=== PATIENT | female | born 1985 | race Caucasian/White ===

== ENCOUNTER 2016-11-17 20:15 | Emergency (ER) | payer OTHER ==
[2016-11-17 20:23] VITALS: BP 124/71; PULSE 89; TEMP 97.8; BMI 29.5
--- NOTE | 2016-11-17 20:24 | PDOC ---
Rapid Medical Evaluation Chief Complaint: Vaginal Bleeding Time Seen by Provider: 11/17/16 20:18 Medical Evaluation: 11/17/16 20:19 I have performed a brief in-person evaluation of this patient. The patient presents with a chief complaint of: Vaginal bleeding. Pt is (1 spon AB), ~8-9 weeks by dates, no care as of yet, currently on abx for uti. Denies abd pain, flank pain, n/v/f/c Pertinent physical exam findings:Stable w/ benign abd and no CVAT I have ordered the following:beta/T&S/ua/US The patient will proceed to the ED for further evaluation.
[2016-11-17 20:57] LABS: URINE APPEARANCE CLEAR; URINE BILIRUBIN NEGATIVE (NEGATIVE); URINE BLOOD NEGATIVE (NEGATIVE); URINE COLOR LTYELLOW; URINE GLUCOSE (UA) NEGATIVE (NEGATIVE); URINE KETONE NEGATIVE (NEGATIVE); URINE NITRITE NEGATIVE (NEGATIVE); URINE PROTEIN NEGATIVE (NEGATIVE); URINE UROBILINOGEN NEGATIVE E.U./dl (0.2-1.0)
--- NOTE | 2016-11-17 21:25 | PDOC ---
History of Present Illness - History of Present Illness Initial Comments: 11/17/16 22:11 Patient is a 31 year old female (LNMP: 09/19/16) with significant medical hx of thyroid disease s/p partial thyroidectomy and gallstones who is presenting to the ED with light vaginal bleeding from today. The patient states that today she noticed scant blood on the toilet paper when she wiped. She states that her bleeding was very light and pink. Denies any abdominal pain, cramping, back pain, nausea, vomiting, diarrhea, fever, dysuria, urinary complaints, or vaginal discharge. Patient reports she hasn't started care as of yet. /M1 Allergies: acetaminophen <Waleska Bajwa - Last Filed: 11/17/16 23:45> <Cehla Rucker - Last Filed: 11/18/16 01:16> - General Chief Complaint: Vaginal Bleeding Stated Complaint: /BLEEDING Time Seen by Provider: 11/17/16 20:18 Past History <Waleska Bajwa - Last Filed: 11/17/16 23:45> - Past Medical History Thyroid Disease: Yes - Psycho/Social/Smoking Cessation Hx Suicidal Ideation: No Smoking History: Never smoked <Chela Rucker - Last Filed: 11/18/16 01:16> - Past Medical History Allergies/Adverse Reactions: Allergies Allergy/AdvReac Type Severity Reaction Status Date / Time acetaminophen [From Tylenol] AdvReac Verified 11/17/16 20:23 Home Medications: Ambulatory Orders NK [No Known Home Medication] 11/17/16 Review of Systems - Review of Systems Comments:: 11/17/16 22:12 CONSTITUTIONAL: Absent: fever, chills, diaphoresis, generalized weakness, malaise, loss of appetite HEENT: Absent: rhinorrhea, nasal congestion, throat pain, throat swelling, difficulty swallowing, mouth swelling, ear pain, eye pain, visual changes CARDIOVASCULAR: Absent: chest pain, syncope, palpitations, irregular heart rate, lightheadedness , peripheral edema RESPIRATORY: Absent: cough, shortness of breath, dyspnea with exertion, orthopnea, wheezing, stridor, hemoptysis GASTROINTESTINAL: Absent: abdominal pain, abdominal distension, nausea, vomiting, diarrhea, constipation, melena, hematochezia GENITOURINARY: Present: vaginal bleeding Absent: dysuria, frequency, urgency, hesitancy, hematuria, flank pain, genital pain MUSCULOSKELETAL: Absent: myalgia, arthralgia, joint swelling SKIN: Absent: rash, itching, pallor HEMATOLOGIC/IMMUNOLOGIC: Absent: easy bleeding, easy bruising, lymphadenopathy, frequent infections ENDOCRINE: Absent: unexplained weight gain, unexplained weight loss, heat intolerance, cold intolerance NEUROLOGIC: Absent: headache, focal weakness or paresthesia, dizziness, unsteady gait, seizure, mental status changes, bladder or bowel incontinence. PSYCHIATRIC: Absent: anxiety, depression, suicidal or homicidal ideation, hallucinations <Waleska Bajwa - Last Filed: 11/17/16 23:45> *Physical Exam - Vital Signs Last Vital Signs Temp Pulse Resp BP Pulse Ox 97.8 F 89 18 124/71 99 11/17/16 20:19 11/17/16 20:19 11/17/16 20:19 11/17/16 20:19 11/17/16 20:19 - Physical Exam Comments: 11/17/16 22:13 GENERAL: Well developed, well nourished. Awake and alert. No acute distress. HEENT: Normocephalic, atraumatic. PERRLA, EOMI. No conjunctival pallor. Sclera are non- icteric. Moist mucous membranes. Oropharynx is clear. NECK: Supple. Full ROM. No JVD. Carotid pulses 2+ and symmetric, without bruits. No thyromegaly. No lymphadenopathy. CARDIOVASCULAR: Regular rate and rhythm. No murmurs, rubs, or gallops. Distal pulses are 2+ and symmetric. PULMONARY: No evidence of respiratory distress. Lungs clear to auscultation bilaterally. No wheezing, rales or rhonchi. ABDOMINAL: Soft. Non-tender. Non-distended. No rebound or guarding. No organomegaly. Normoactive bowel sounds. MUSCULOSKELETAL: Normal range of motion at all joints. No bony deformities or tenderness. No CVA tenderness. EXTREMITIES: No cyanosis. No clubbing. No edema. No calf tenderness. SKIN: Warm and dry. Normal capillary refill. No rashes. No jaundice. NEUROLOGICAL: Alert, awake, appropriate. Cranial nerves 2-12 intact. Normal speech. PSYCHIATRIC: Cooperative. Good eye contact. Appropriate mood and affect. <Waleska Bajwa - Last Filed: 11/17/16 23:45> - Vital Signs Last Vital Signs Temp Pulse Resp BP Pulse Ox 97.8 F 89 18 124/71 99 11/17/16 20:19 11/17/16 20:19 11/17/16 20:19 11/17/16 20:19 11/17/16 20:19 <Chela Rucker - Last Filed: 11/18/16 01:16> ED Treatment Course - ADDITIONAL ORDERS Additional order review: Laboratory Results 11/17/16 11/17/16 20:33 20:33 Beta HCG, Quant 70759.2 Urine Color Ltyellow Urine Appearance Clear Urine pH 8.0 Urine Protein Negative Urine Glucose (UA) Negative Urine Ketones Negative Urine Blood Negative Urine Nitrite Negative Urine Bilirubin Negative Urine Urobilinogen Negative Ur Leukocyte Esterase Trace H Urine RBC 13 Urine WBC 3 Ur Epithelial Cells Rare Hyaline Casts 1 Urine Mucus Rare - RADIOLOGY Radiograph Interpretation: 11/17/16 23:46 Transvaginal US Impression: Single intrauterine gestational sac with estimated gestational age of 6 weeks 4 days. No pole or yolk sac is identified. Correlation with serial quantitative serum beta hCG and follow-up ultrasound is recommended to rule out blighted ovum. Reported By: Yara David MD <Waleska Bajwa - Last Filed: 11/17/16 23:45> Medical Decision Making - Medical Decision Making 11/18/16 00:21 31-year-old female who is 3, para 2. Presents because of pelvic cramping and some light vaginal bleeding. She states that her last menstrual period was in August. Beta-hCG is 11,000. Transvaginal ultrasound shows an intrauterine uterine gestational sac of approximately 6 weeks. No pole and no yolk sac. Beta-hCGs will have to be repeated and there is concern for a blighted ovum. <Chela Rucker - Last Filed: 11/18/16 01:16> *DC/Admit/Observation/Transfer - Attestations Scribe Attestion: 11/17/16 22:13 Documentation prepared by Waleska Bajwa, acting as medical reception for Chela Rucker MD. <Waleska Bajwa - Last Filed: 11/17/16 23:45> <Chela Rucker - Last Filed: 11/18/16 01:16> Diagnosis at time of Disposition: Threatened - Discharge Dispostion Disposition: HOME Condition at time of disposition: Stable - Patient Instructions Printed Discharge Instructions: DI for Threatened Additional Instructions: please call your cake inspector and ask to have repeat bhcg and pelvix ultrasound one week
[2016-11-17 21:27] LABS: URINE LEUK ESTERASE TRACE (NEGATIVE)
[2016-11-17 21:39] LABS: URINE HYALINE CAST 1 /lpf; URINE MUCUS RARE; URINE RBC 13 /hpf (0-3); URINE WBC 3 /hpf (3-5)
== END 2016-11-18 01:22 | disposition home or self-care (01) ==
LOC: JER 20:15
DX: O26.891 Other specified pregnancy related conditions, first trimester (principal); Z3A.01 Less than 8 weeks gestation of pregnancy; O20.0 Threatened abortion; E07.9 Disorder of thyroid, unspecified
CPT/HCPCS: 36415; 76817-TC; 81003; 81015; 84702; 86850; 86900; 86901; 87086; 99282-25

== ENCOUNTER 2016-11-21 16:20 | Emergency (ER) | payer OTHER ==
[2016-11-21 16:29] VITALS: BP 115/66; PULSE 98; TEMP 98; BMI 29.7
--- NOTE | 2016-11-21 16:57 | PDOC ---
History of Present Illness - History of Present Illness Initial Comments: 11/21/16 17:31 Patient is a 31 year old female (LNMP: 09/19/16) with significant medical hx of thyroid disease who is presenting to the ED with one day of heavy vaginal bleeding. Patient reports she is passing clots and saturating through her pads into her clothing. The patient also endorses associated pelvic cramping. The patient was seen on 11/17 for light vaginal spotting and received a pelvic US. Her US demonstrated single intrauterine gestational sac with age of 6 weeks 4 days without any pole or yolk sac identifiable. Her beta hCG at that time was 11 thousand. She was discharged with instructions to follow up with sap bi architect and the patient failed to obtain follow up care. Denies any nausea , vomiting, abdominal pain, lightheadedness, fever, or chills. <Waleska Bajwa - Last Filed: 11/21/16 22:55> <Chey Landon - Last Filed: 11/22/16 00:17> - General Chief Complaint: Vaginal Bleeding Stated Complaint: VAGINAL BLEEDING, 6 WKS Time Seen by Provider: 11/21/16 16:57 Past History <Waleska Bajwa - Last Filed: 11/21/16 22:55> - Past Medical History Thyroid Disease: Yes - Reproductive History (#): 1 Para: 0 Therapeutic (s) & number: Yes Spontaneous : 0 - Psycho/Social/Smoking Cessation Hx Anxiety: No Suicidal Ideation: No Smoking History: Never smoked Have you smoked in the past 12 months: No Information on smoking cessation initiated: No Hx Alcohol Use: No Drug/Substance Use Hx: No Substance Use Type: None <Chey Landon - Last Filed: 11/22/16 00:17> - Past Medical History Allergies/Adverse Reactions: Allergies Allergy/AdvReac Type Severity Reaction Status Date / Time acetaminophen [From Tylenol] AdvReac Verified 11/21/16 16:26 Home Medications: Ambulatory Orders NK [No Known Home Medication] 11/17/16 Review of Systems - Review of Systems Comments:: 11/21/16 17:35 GENERAL/CONSTITUTIONAL: No fever or chills. No weakness. HEAD, EYES, EARS, NOSE AND THROAT: No change in vision. No ear pain or discharge. No sore throat. CARDIOVASCULAR: No chest pain or shortness of breath. RESPIRATORY: No cough, wheezing, or hemoptysis. GASTROINTESTINAL: Pelvic cramping. No nausea, vomiting, diarrhea or constipation. GENITOURINARY: Vaginal bleeding. No dysuria, frequency, or change in urination. MUSCULOSKELETAL: No joint or muscle swelling or pain. No neck or back pain. ENDOCRINE: No increased thirst. No abnormal weight change. SKIN: No rash NEUROLOGIC: No headache, vertigo, loss of consciousness, or change in strength/ sensation. <Waleska Bajwa - Last Filed: 11/21/16 22:55> *Physical Exam - Vital Signs Last Vital Signs Temp Pulse Resp BP Pulse Ox 98.0 F 98 H 18 115/66 100 11/21/16 16:26 11/21/16 16:26 11/21/16 16:26 11/21/16 16:26 11/21/16 16:26 - Physical Exam Comments: 11/21/16 17:35 GENERAL: Awake, alert, and fully oriented, in no acute distress HEAD: No signs of trauma EYES: PERRLA, EOMI, sclera anicteric, conjunctiva clear ENT: Auricles normal inspection, hearing grossly normal, nares patent, oropharynx clear without exudates. Moist mucosa NECK: Normal ROM, supple, no lymphadenopathy, JVD, or masses LUNGS: Breath sounds equal, clear to auscultation bilaterally. No wheezes, and no crackles HEART: Regular rate and rhythm, normal S1 and S2, no murmurs, rubs or gallops ABDOMEN: Soft, nontender, normoactive bowel sounds. No guarding, no rebound. No masses EXTREMITIES: Normal range of motion, no edema. No clubbing or cyanosis. No cords, erythema, or tenderness NEUROLOGICAL: Cranial nerves II through XII grossly intact. Normal speech, normal gait SKIN: Warm, Dry, normal turgor, no rashes or lesions noted. HEMATOLOGIC/LYMPHATIC: No anemia, easy bleeding, or history of blood clots. ALLERGIC/IMMUNOLOGIC: No hives or skin allergy. PELVIC: Moderate amount of blood in vaginal vault. Os closed. No CMT. No adnexal tenderness. <Waleska Bajwa - Last Filed: 11/21/16 22:55> - Vital Signs Last Vital Signs Temp Pulse Resp BP Pulse Ox 98.0 F 98 H 18 115/66 100 11/21/16 16:26 11/21/16 16:26 11/21/16 16:26 11/21/16 16:26 11/21/16 16:26 <Chey Landon - Last Filed: 11/22/16 00:17> ED Treatment Course - LABORATORY CBC & Chemistry Diagram: 11/21/16 17:34 11/21/16 18:30 - RADIOLOGY Radiograph Interpretation: 11/21/16 22:55 Transvaginal US Impression: Thickened and irregular endometrium with increased vascularity suggesting retained products of conception. Clinical correlation and follow-up recommended. Please see discussion. Reported By: Seun Cr MD <Waelska Bajwa - Last Filed: 11/21/16 22:55> - LABORATORY CBC & Chemistry Diagram: 11/21/16 17:34 11/21/16 18:30 <Chey Landon - Last Filed: 11/22/16 00:17> Medical Decision Making - Medical Decision Making 11/21/16 20:46 Pt presents to the ED complaining of a one day history of heavy vaginal bleeding. Recently seen in the ED for vaginal spotting--had BHCG of 11,000 and Us that showed only gestational sac. Patient now complains of heavy bleeding, passing clots. On my exam, os is closed with moderate bleeding in the vaginal vault. Differential includes completed AB, missed AB, also ectopic remains on the differential. Will repeat BHCG, check US to again evaluate for ectopic. 11/22/16 00:13 US suspcious for retained products of conception, but os is closed and patient reports that bleeding is resolving. Patient will be discharged home with instructions to return immediately for worsening bleeding, fevers or severe abdominal pain. Has CAFETERIA COOK follow up on Thursday. <Chey Landon - Last Filed: 11/22/16 00:17> *DC/Admit/Observation/Transfer - Attestations Scribe Attestion: 11/21/16 17:36 Documentation prepared by Waleska Bajwa, acting as medical claims assistant for Chey Landon MD. <Waleska Bajwa - Last Filed: 11/21/16 22:55> - Discharge Dispostion Admit: No <BarbiChey reyes - Last Filed: 11/22/16 00:17> Diagnosis at time of Disposition: Threatened - Discharge Dispostion Disposition: HOME Condition at time of disposition: Good - Patient Instructions Printed Discharge Instructions: DI for Vaginal Bleeding Additional Instructions: Return to the ED for heavy vaginal bleeding, severe pain, fever, nausea and vomiting.
[2016-11-21 17:45] LABS: BASOPHIL 0.4 % (0-2.0); EOSINOPHIL 5.1 % (0-4.5); MCH 29.6 pg (25.7-33.7); MCHC 33.3 g/dl (32.0-36.0); MEAN CELL VOLUME 88.7 fl (80-96); PLATELET COUNT 290 K/MM3 (134-434); RDW 12.9 % (11.6-15.6); WHITE BLOOD COUNT 9.8 K/mm3 (4.0-10.0)
[2016-11-21 17:51] LABS: URINE APPEARANCE SLCLOUDY; URINE BILIRUBIN NEGATIVE (NEGATIVE); URINE COLOR YELLOW; URINE GLUCOSE (UA) NEGATIVE (NEGATIVE); URINE KETONE NEGATIVE (NEGATIVE); URINE LEUK ESTERASE NEGATIVE (NEGATIVE); URINE NITRITE NEGATIVE (NEGATIVE); URINE UROBILINOGEN NEGATIVE E.U./dl (0.2-1.0)
[2016-11-21 17:55] LABS: URINE BLOOD 3+ (NEGATIVE); URINE PROTEIN 1+ (NEGATIVE)
[2016-11-21 17:59] LABS: URINE MUCUS RARE; URINE RBC 2456 /hpf (0-3)
[2016-11-21 18:44] LABS: INR 1.09 (0.82-1.09)
[2016-11-21 20:02] LABS: ALBUMIN 3.7 g/dl (3.4-5.0); ALK PHOS 109 U/L (45-117); ANION GAP 7 (8-16); BILIRUBIN,TOTAL 0.3 mg/dL (0.2-1.0); CALCIUM 8.6 mg/dL (8.5-10.1); CO2 27 mmol/L (21-32); CREATININE 0.6 mg/dL (0.55-1.02); GLUCOSE,RANDOM 74 mg/dL (74-106); SGOT/AST 17 U/L (15-37); SGPT/ALT 28 U/L (12-78); TOT PROT 7.4 g/dl (6.4-8.2)
== END 2016-11-22 00:23 | disposition home or self-care (01) ==
LOC: JER 16:20
DX: O20.0 Threatened abortion (principal); Z3A.01 Less than 8 weeks gestation of pregnancy
CPT/HCPCS: 36415; 76817-TC; 80053; 81003; 81015; 84702; 84703; 85025; 85610; 86850; 86900; 86901; 99281-25

== ENCOUNTER 2018-04-12 01:50 | Inpatient (IN) | payer OTHER ==
[2018-04-12 02:41] VITALS: BMI 29.8
[2018-04-12] MEDS ORDERED: DEXTROSE 5%-WATER - 1,000 ML IV ONE ×2 (02:43→02:49)
[2018-04-12] MEDS ORDERED: AMPICILLIN - 2 GM in SODIUM CHLORIDE 100 ML IVPB ONE (02:45)
[2018-04-12] MEDS ORDERED: OXYTOCIN 20 UNITS in 0.9% NS 20 UNIT/1,000 ML INFUS.BAG IV ONE (02:58)
[2018-04-12 02:59] LABS: BASO % 0.6 % (0-2.0); EOS % 3.7 % (0-4.5); HEMATOCRIT 39.1 % (32.4-45.2); HEMOGLOBIN 13.5 GM/dL (10.7-15.3); LYMPH % 16.2 % (8-40); MCH 30.1 pg (25.7-33.7); MCHC 34.6 g/dl (32.0-36.0); MEAN CELL VOLUME 87.1 fl (80-96); MEAN PLT VOLUME 8.4 fl (7.5-11.1); MONO % 6.5 % (3.8-10.2); PLATELET COUNT 275 K/MM3 (134-434); RBC 4.48 M/mm3 (3.60-5.2); RDW 13.6 % (11.6-15.6); WHITE BLOOD COUNT 10.4 K/mm3 (4.0-10.0)
--- NOTE | 2018-04-12 03:10 | PN ---
Progress Note (short form) - Note Progress Note: cx 6 cm, 80 vx -2, mi, arom , mec stained AF , fhr cat 1, scalp electrode applied
[2018-04-12] MEDS ORDERED: NALOXONE HCL 0.4 MG/ML VIAL IVPUSH PRN (03:19)
[2018-04-12] MEDS ORDERED: ELECTROLYTE-148 SOLN 500 ML IV ONE ×3 (03:20→04:22)
[2018-04-12] MEDS ORDERED: FENTANYL/BUPIVACAINE/NS/PF - PCEA - 50 ML DISP.SYRIN EP ONE (03:20)
[2018-04-12 03:24] LABS: INR 0.92 (0.83-1.09); PROTHROMBIN TIME (PATIENT) 10.9 SEC (9.7-13.0)
[2018-04-12] MEDS ORDERED: LIDO 2%/EPI 1:200000 PRESRVFRE (20 ML SDVIAL) ONE (03:24)
[2018-04-12 03:25] LABS: ANION GAP 11 MMOL/L (8-16); BLOOD UREA NITROGEN 9 mg/dL (7-18); CALCIUM 8.3 mg/dL (8.5-10.1); CHLORIDE 106 mmol/L (98-107); CO2 20 mmol/L (21-32); CREATININE 0.5 mg/dL (0.55-1.3); GLUCOSE,RANDOM 86 mg/dL (74-106); POTASSIUM 3.9 mmol/L (3.5-5.1); SODIUM 136 mmol/L (136-145)
--- NOTE | 2018-04-12 03:39 | HP ---
Past Medical History - Primary Care Physician PCP:: Cayden Mckenna - Admission Chief Complaint: 40 weeks, labor History of Present Illness: 33 yo f ,edc 04/06/18 in labor, cx 6 cm, 80 vx -2, mi, fhr cat 1, regular contraction q 1 min History Source: Patient Limitations to Obtaining History: No Limitations - Past Medical History ...: 2 ...Para: 1 ...Term: 1 ...: 0 ...Spon : 0 ...Induced : 0 ...Multiple Gestation: 0 ...LMP: 06/18/17 ... Weeks Gestation by Dates: 42.3 ...EDC by Dates: 03/25/18 ...EDC by Sono: 04/06/18 - Past Surgical History Hx Myomectomy: No Hx Transabdominal Cerclage: No Additional Surgical History: partial thyroidectomy - Smoking History Smoking history: Never smoked Have you smoked in the past 12 months: No - Alcohol/Substance Use Hx Alcohol Use: No - Social History History of Recent Travel: Yes (traveled to [facility] 07/2017) Home Medications - Allergies Allergies/Adverse Reactions: Allergies Allergy/AdvReac Type Severity Reaction Status Date / Time apple Allergy Verified 04/12/18 02:23 acetaminophen [From Tylenol] AdvReac Verified 04/12/18 02:23 - Home Medications Home Medications: Ambulatory Orders Pnv No.95/Ferrous Fum/Folic AC [ Vitamin Tablet] 1 tab PO DAILY Review of Systems - Review of Systems Constitutional: reports: No Symptoms Eyes: reports: No Symptoms HENT: reports: No Symptoms Neck: reports: No Symptoms Respiratory: reports: No Symptoms Gastrointestinal: reports: No Symptoms Genitourinary: reports: No Symptoms Breasts: reports: No Symptoms Reported Musculoskeletal: reports: No Symptoms Integumentary: reports: No Symptoms Neurological: reports: No Symptoms Endocrine: reports: No Symptoms Hematology/Lymphatic: reports: No Symptoms Psychiatric: reports: No Symptoms Physical Exam - Maternity Vital Signs: Vital Signs Temperature 98.0 F 04/12/18 02:00 Pulse Rate 97 H 04/12/18 02:00 Respiratory Rate 16 04/12/18 02:00 Blood Pressure 120/78 04/12/18 02:00 O2 Sat by Pulse Oximetry (%) Constitutional: Yes: Well Nourished, No Distress, Calm Eyes: Yes: WNL, Conjunctiva Clear, EOM Intact HENT: Yes: WNL, Atraumatic, Normocephalic Neck: Yes: WNL, Supple, Trachea Midline Cardiovascular: Yes: WNL, Regular Rate and Rhythm Breast(s): Yes: WNL - Abdominal Exam/OB Fundal Height: 40 Number of Fetuses: Single Presentation: Vertex Contractions: Yes Regularity: Regular Intensity: Mod/Strong Monitor Mode: External Heart Rate Location: [facility] Category: I Accelerations: Uniform Decelerations: None - Vaginal Exam/OB Vaginal Bleediing: No Speculum Exam: No Dilatation (cm): 6 cm Effacement (%): 80 Presentation: Vertex/Position Station: -2 - Physical Exam Extremities: Yes: WNL Edema: No Edema: LLE: Trace, RLE: Trace Deep Tendon Reflex Grade: Normal +2 Psychiatric: Yes: WNL - Labs Lab Results: CBC, BMP 04/12/18 02:40 04/12/18 02:40 Hemorrhage Risk Assessment - Risk Factors Medium Risk Factors: Yes: None High Risk Factors: Yes: None Risk Score: 1 Risk Level: Medium Risk Problem List - Problems (1) Postmaturity , 40-42 weeks gestation Code(s): O48.0 - POST-TERM (2) Labor established Code(s): EZY2444 - Assessment/Plan plan admit, fhm, pain management
[2018-04-12] MEDS: FENTANYL/BUPIVACAINE/NS/PF - PCEA - 50 ML DISP.SYRIN EP SCH (03:46)
[2018-04-12 06:28] LABS: ARTERIAL BLD GAS O2 SATURATION 68.1 % (90-98.9); ARTERIAL BLOOD GAS BASE EXCESS -4.1 meq/l (-2-2); ARTERIAL BLOOD GAS PCO2 41.1 mmHg (35-45); ARTERIAL BLOOD GAS pH 7.33 (7.35-7.45)
[2018-04-12 06:33] LABS: ARTERIAL BLOOD GAS PO2 36.6 mmHg (80-100)
[2018-04-12 06:34] LABS: VENOUS PC02 41.2 mmHg (38-52); VENOUS PH 7.33 (7.32-7.42)
[2018-04-12 06:35] LABS: VENOUS PO2 36.2 mmHg (28-48)
[2018-04-12] MEDS ORDERED: BISACODYL 10 MG SUPP.RECT RC PRN (06:49)
[2018-04-12] MEDS ORDERED: WITCH HAZEL 50% (TUCKS) 40 PAD/JAR PAD TP PRN (06:49)
[2018-04-12] MEDS ORDERED: IBUPROFEN 600 MG TABLET (FP) PO PRN (06:49)
[2018-04-12] MEDS ORDERED: METHYLERGONOVINE MALEATE 0.2 MG/1 ML AMP IM PRN (06:49)
[2018-04-12] MEDS ORDERED: BENZOCAINE 20% 57 GM BOTTLE TP PRN (06:49)
[2018-04-12] MEDS ORDERED: BENZOCAINE 28 GM HEMORRHOIDAL OINTMENT TP PRN (06:49)
[2018-04-12] MEDS ORDERED: OXYTOCIN 20 UNITS in 0.9% NS 20 UNIT/1,000 ML INFUS.BAG IV SCH (07:00)
[2018-04-12] MEDS ORDERED: D5W-LR W/ 20 UNITS OXYTOCIN 1,000 ML IV SCH (07:00)
[2018-04-12] MEDS: FERROUS SO4 325 MG TABLET (FP) PO SCH ×2 (09:01→17:18)
[2018-04-12] MEDS: PRENATAL VITAMINS W/ FOLIC ACID TABLET (FP) PO SCH (09:01)
[2018-04-13 07:53] LABS: BASO % 0.4 % (0-2.0); EOS % 3.7 % (0-4.5); HEMATOCRIT 34.7 % (32.4-45.2); HEMOGLOBIN 11.7 GM/dL (10.7-15.3); LYMPH % 22.3 % (8-40); MCH 29.2 pg (25.7-33.7); MCHC 33.6 g/dl (32.0-36.0); MONO % 5.9 % (3.8-10.2); NEUT % 67.7 % (42.8-82.8); PLATELET COUNT 241 K/MM3 (134-434); RBC 3.99 M/mm3 (3.60-5.2); RDW 13.6 % (11.6-15.6); WHITE BLOOD COUNT 9.2 K/mm3 (4.0-10.0)
[2018-04-13] MEDS: FERROUS SO4 325 MG TABLET (FP) PO SCH ×2 (08:00→17:53)
--- NOTE | 2018-04-13 08:45 | PN ---
Post Progress Note - Subjective Subjective: 33 yo Para 2 status post vaginal delivery seen and evaluated. Doing well Post Day: 1 Type of Delivery: Vital Signs: Vital Signs Temperature 98.3 F 04/12/18 20:35 Pulse Rate 78 04/12/18 20:35 Respiratory Rate 18 04/12/18 20:35 Blood Pressure 113/60 04/12/18 20:35 O2 Sat by Pulse Oximetry (%) 100 04/12/18 07:15 Breast Exam: Yes: Soft Uterus: Yes: Fundus Firm Abdomen/GI: Yes: Abdomen soft, Tolerating PO Lochia: Yes: Rubra Lochia, amount: Moderate Extremities: Yes: Calves non-tender Activity: Ambulating - Labs Labs: CBC WBC 10.4 K/mm3 (4.0-10.0) H 04/12/18 02:40 RBC 4.48 M/mm3 (3.60-5.2) 04/12/18 02:40 Hgb 13.5 GM/dL (10.7-15.3) 04/12/18 02:40 Hct 39.1 % (32.4-45.2) 04/12/18 02:40 MCV 87.1 fl (80-96) 04/12/18 02:40 MCH 30.1 pg (25.7-33.7) 04/12/18 02:40 MCHC 34.6 g/dl (32.0-36.0) 04/12/18 02:40 RDW 13.6 % (11.6-15.6) 04/12/18 02:40 Plt Count 275 K/MM3 (134-434) 04/12/18 02:40 MPV 8.4 fl (7.5-11.1) 04/12/18 02:40 Absolute Neuts (auto) 7.6 K/mm3 (1.5-8.0) 04/12/18 02:40 Neutrophils % 73.0 % (42.8-82.8) 04/12/18 02:40 Lymphocytes % 16.2 % (8-40) 04/12/18 02:40 Monocytes % 6.5 % (3.8-10.2) 04/12/18 02:40 Eosinophils % 3.7 % (0-4.5) 04/12/18 02:40 Basophils % 0.6 % (0-2.0) 04/12/18 02:40 Nucleated RBC % 0 % (0-0) 04/12/18 02:40 Assessment/Plan Status post normal vaginal delivery Stable Continue routine care
[2018-04-13] MEDS: PRENATAL VITAMINS W/ FOLIC ACID TABLET (FP) PO SCH (10:00)
[2018-04-13] MEDS: FENTANYL/BUPIVACAINE/NS/PF - PCEA - 50 ML DISP.SYRIN EP SCH (13:11)
[2018-04-13] MEDS ORDERED: SENNOSIDES/DOCUSATE COMBO (SENNA PLUS) TABLET (UD) PO PRN (22:00)
[2018-04-14 07:33] VITALS: BP 124/79; PULSE 82; TEMP 98
[2018-04-14] MEDS: FERROUS SO4 325 MG TABLET (FP) PO SCH (08:17)
--- NOTE | 2018-04-14 08:34 | PN ---
Post Progress Note Post Day: 2 Type of Delivery: Vital Signs: Vital Signs Temperature 98 F 04/14/18 07:32 Pulse Rate 82 04/14/18 07:32 Respiratory Rate 20 04/14/18 07:32 Blood Pressure 124/79 04/14/18 07:32 O2 Sat by Pulse Oximetry (%) 100 04/13/18 09:00 Breast Exam: Yes: Soft, Other (BF.). No: Engorged Uterus: Yes: Fundus Firm, Fundus below umbilicus, Non-tender Lochia: Yes: Rubra Lochia, amount: Moderate Extremities: Yes: Calves non-tender Perineum: Yes: Laceration Activity: Ambulating - Labs Labs: CBC WBC 9.2 K/mm3 (4.0-10.0) 04/13/18 06:30 RBC 3.99 M/mm3 (3.60-5.2) 04/13/18 06:30 Hgb 11.7 GM/dL (10.7-15.3) 04/13/18 06:30 Hct 34.7 % (32.4-45.2) 04/13/18 06:30 MCV 87.0 fl (80-96) 04/13/18 06:30 MCH 29.2 pg (25.7-33.7) 04/13/18 06:30 MCHC 33.6 g/dl (32.0-36.0) 04/13/18 06:30 RDW 13.6 % (11.6-15.6) 04/13/18 06:30 Plt Count 241 K/MM3 (134-434) 04/13/18 06:30 MPV 8.0 fl (7.5-11.1) 04/13/18 06:30 Absolute Neuts (auto) 6.2 K/mm3 (1.5-8.0) 04/13/18 06:30 Neutrophils % 67.7 % (42.8-82.8) 04/13/18 06:30 Lymphocytes % 22.3 % (8-40) D 04/13/18 06:30 Monocytes % 5.9 % (3.8-10.2) 04/13/18 06:30 Eosinophils % 3.7 % (0-4.5) 04/13/18 06:30 Basophils % 0.4 % (0-2.0) 04/13/18 06:30 Nucleated RBC % 0 % (0-0) 04/13/18 06:30 Problem List - Problems (2) Encounter for visit Code(s): Z39.2 - ENCOUNTER FOR ROUTINE FOLLOW-UP Assessment/Plan stable. plan discharge today
[2018-04-14] MEDS: PRENATAL VITAMINS W/ FOLIC ACID TABLET (FP) PO SCH (10:05)
== END 2018-04-14 12:05 | disposition home or self-care (01) | DRG 560 ==
LOC: JLDR 01:50 → J3W 08:00
PROVIDERS: ADMIT Obstetrics & Gynecology; ATTEND Obstetrics & Gynecology
PROC: 10E0XZZ Delivery of Products of Conception, External Approach (ICD-10-PCS; principal; 2018-04-12)
PROC: 0KQM0ZZ Repair Perineum Muscle, Open Approach (ICD-10-PCS; 2018-04-12)
DX: O48.0 Post-term pregnancy (principal); Z3A.40 40 weeks gestation of pregnancy; Z37.0 Single live birth; O70.1 Second degree perineal laceration during delivery
CPT/HCPCS: 36415; 36600; 59409; 80048; 82803; 85025; 85610; 85730; 86593; 86850; 86900; 86901

== ENCOUNTER 2019-05-05 13:21 | Emergency (ER) | payer OTHER ==
[2019-05-05 13:33] VITALS: BMI 27.4
--- NOTE | 2019-05-05 15:31 | PDOC ---
History of Present Illness - General Chief Complaint: Vaginal Bleeding Stated Complaint: 7WKS/ BLEEDING Time Seen by Provider: 05/05/19 15:21 History Source: Patient Exam Limitations: No Limitations - History of Present Illness Travel History: No Initial Comments: 05/05/19 15:29 34-year-old female G5, approximately 7 weeks by dates presents with vaginal bleeding since today. Patient states she did have a little bit of spotting 2 days ago but then resolved. Patient denies any associated abdominal pain, nausea, vomiting, back pain. Patient states that the bleeding is very scant less than 1. She is concerned as she has had 2 miscarriages in the past. The patient denies any other symptoms including headache, dizziness, vision changes, chest pain, shortness of breath, back pain, dysuria, diarrhea. Patient has not had any care yet. OB: Dr Cabral ROS: Constitutional - no reported Fever, Chills, HEENT: no reported vision changes, sore throat Respiratory: no reported cough, sob, hemoptysis Cardiac: no reported chest pain, palpitations, light headedness, leg swelling Abd/GI: no reported abd pain, nausea, vomiting, blood per rectum, melena, diarrhea : +Vag bleeding no reported dysuria, frequency, discharge Musculskelatal - no reported back pain, joint swelling skin - no reported bruising, erythema, rash neurological: no reported headache, numbness, focal weakness, tingling, ataxia, hematologic: no reported easy bruising, easy bleeding GENERAL: The patient is awake, alert, and fully oriented, Nontoxic - in no acute distress. HEAD: Normocephalic, atraumatic. EYES: extraocular movements intact, sclera anicteric, conjunctiva clear. ENT: Normal voice, Moist mucous membranes. NECK: Normal range of motion, supple LUNGS: Breath sounds equal, clear to auscultation bilaterally. No wheezes, no rhonchi, no rales. HEART: Regular rate and rhythm, normal S1 and S2 without murmur, rub or gallop. ABDOMEN: Soft, nontender, No guarding, no rebound. No CVA tenderness Plaster Whittler: Cervical os closed, scant blood in vaginal vault. No adnexal tenderness EXTREMITIES: Normal range of motion, no edema. NEUROLOGICAL: No facial assymetry, Normal speech, PSYCH: Normal mood, normal affect. SKIN: Warm, Dry, normal turgor, Threatened miscarriage, will obtain blood work, TV ultrasound Past History - Past Medical History Allergies/Adverse Reactions: Allergies Allergy/AdvReac Type Severity Reaction Status Date / Time apple Allergy Verified 05/06/19 20:43 acetaminophen [From Tylenol] AdvReac Verified 05/06/19 20:43 Home Medications: Ambulatory Orders NK [No Known Home Medication] 05/07/19 Asthma: No Cancer: No Cardiac Disorders: No COPD: No Diabetes: No HTN: No Seizures: No Thyroid Disease: No - Reproductive History (#): 1 Para: 0 Therapeutic (s) & number: Yes Spontaneous : 0 - Psycho Social/Smoking Cessation Hx Smoking History: Never smoked Have you smoked in the past 12 months: No Hx Alcohol Use: No Drug/Substance Use Hx: No Substance Use Type: None Hx Substance Use Treatment: No *Physical Exam - Vital Signs Last Vital Signs Temp Pulse Resp BP Pulse Ox 98 F 87 16 110/73 100 05/05/19 13:29 05/05/19 13:29 05/05/19 13:29 05/05/19 13:29 05/05/19 13:29 ED Treatment Course - LABORATORY CBC & Chemistry Diagram: 05/05/19 15:07 - RADIOLOGY Radiology Studies Ordered: Category Date Time Status <14WKS US [US] Stat Ultrasound 05/05/19 15:21 Ordered Medical Decision Making - Medical Decision Making 05/05/19 16:48 pts beta at 6k US shows IUP wo cardiac activity pt feeling well curerntly will hve pt fu wih dr. marianna javed or return to ed for follow up retur npercautions were discussed Discharge - Discharge Information Problems reviewed: Yes Clinical Impression/Diagnosis: Vagina bleeding Condition: Good Disposition: HOME - Admission No - Follow up/Referral Referrals: Marianna Javed CNM [Certified Nurse Scientific Investigator] - - Patient Discharge Instructions Patient Printed Discharge Instructions: Medications and , Threatened Additional Instructions: you have a 6 week sized fetus on ultrasound but they are unable to detect heart activity. you will need close followup . this could be early vs. demise. you should follow up with your OB for a repeat ultrasound and hormone of as scheduled for thursday. return for any fever, dizziness or any concerns. be sure to drink plenty of fluids, - Post Discharge Activity
[2019-05-05 15:37] LABS: BASO % 0.5 % (0-2.0); HEMATOCRIT 40.3 % (32.4-45.2); HEMOGLOBIN 13.7 GM/dL (10.7-15.3); LYMPH % 18.7 % (8-40); MCH 30.5 pg (25.7-33.7); MEAN CELL VOLUME 89.9 fl (80-96); MEAN PLT VOLUME 7.9 fl (7.5-11.1); MONO % 5.8 % (3.8-10.2); PLATELET COUNT 329 K/MM3 (134-434); RBC 4.49 M/mm3 (3.60-5.2); RDW 12.3 % (11.6-15.6); WHITE BLOOD COUNT 9.4 K/mm3 (4.0-10.0)
[2019-05-05 16:41] VITALS: BP 108/75; PULSE 89; TEMP 97.5
== END 2019-05-05 16:57 | disposition home or self-care (01) ==
LOC: JER 13:21
DX: O26.891 Other specified pregnancy related conditions, first trimester (principal); Z3A.01 Less than 8 weeks gestation of pregnancy; O20.0 Threatened abortion
CPT/HCPCS: 36415; 76817-TC; 84702; 85025; 86850; 86900; 86901; 99282-25

== ENCOUNTER 2019-05-06 20:39 | Inpatient (IN) | payer OTHER ==
[2019-05-06 20:43] VITALS: BMI 29.3
--- NOTE | 2019-05-06 21:15 | PDOC ---
Attending Attestation - Resident Resident Name: FrancoisShira - ED Attending Attestation I have performed the following: I have examined & evaluated the patient, The case was reviewed & discussed with the resident, I agree w/resident's findings & plan - HPI HPI: 05/06/19 21:24 Pt comes with active heavy vaginal bleeding. She has been bleeding heavily x 3 hrs. Pt has x hx of 2 prior miscarriages: 2014 and 2016. SHe has 2 healthy babies 2015, 2018. She has Bpositive blood tylpe. She was here yesterday for threatened ab; hcg was 6K and her hb/hct was stable. Today we will repeat blood tests and call AIRPORT OPERATIONS DUTY MANAGER for consult - Physicial Exam PE: 05/06/19 21:45 Pt having active heavy vag bleed. No discomfort. Abd soft NT ND. Heart NSR Lungs clear. Hemodynamically stable SHe has no complaints. States that she has never bled this much in prior 2 miscarriages. Pt has no lightheadedness and she is not pale. IV NSS running. - Medical Decision Making 05/06/19 21:44 Pt has been losing a lot of blood, but at this time, her Hb is 13 and stable. 05/06/19 22:35 HCG dropped from 6077 to 5200. 05/06/19 23:38 Pt's Hb dropped from 13.3 to 10.9 after 1L of saline administered; Actively bleeding. house calls nurse AIRPORT OPERATIONS DUTY MANAGER called by resident 2x. States that pt is having a normal miscarriage , and is expected to bleed. I called distance education faculty liaison AIRPORT OPERATIONS DUTY MANAGER and let her know that pt vasovagaled to 32/20 blood pressure and HR 40s. BP imporved; resident tells me vag bleed has tapered a bit. house calls nurse AIRPORT OPERATIONS DUTY MANAGER tells me that pt is expected to bleed and that she is stable and that a hct of 33 is stable, and to admit to medicine if I am concerned I went to bedisde to re-examine patient. Upon passing speculum, heavy active bleed with BRB and clots came out. I called Dr. James in L+D (2nd call - previously the nurses/residents called) she tells us that she will see patient if this is an emegency; I agreed that this sis an emergency; she tells me that the HCT is not emergency and that I should contact Dr. Sanders, who is covering ER. Marilyn called for the 4th time. She is hesitantly coming in to see the patient Pt's BP is now 130s systolic, but that is after 2L and a 3rd running in. HT is stable at 80, and I think that reflects the 2L saline and the 3rd L of Ringers Lactate. 05/06/19 23:46 I will continue to monitor the patient, and I previously sent a 2nd T+S for the patient and we ordered 2U of blood. I just called blood bank and they will let us know when blood products are ready TRUDI. 05/07/19 00:09 Dr. Sanders arrived. I removed multiple blood and clot from vag vault; ob sterile pack at bedside. 05/07/19 01:16 Medicine refusing to admit the patient, as this is a AIRPORT OPERATIONS DUTY MANAGER case. 05/07/19 03:17 Pt had a syncopal when she stood up, as nurses were changing her and her bloody sheets; nurses caught her. Pt will need to be admitted 05/07/19 04:25 Patient Name: NICCI GRANT THIS IS A PRELIMINARY REPORT FROM [facility] DATE OF SERVICE: 2019-05-07 01:12:51 IMAGES: 22 EXAM: Pelvic ultrasound HISTORY: Miscarriage. Bleeding. COMPARISON: None. FINDINGS: No intrauterine gestation is identified. The endometrial complex is thickened at approximately 2 cm. There is some vascularity within it. In the clinical setting of a miscarriage, retained products of conception is the major diagnostic consideration. No free fluid. Normal ovaries bilaterally with positive Doppler blood flow 05/07/19 04:48 Pt will be admitted to AIRPORT OPERATIONS DUTY MANAGER; accepted by Dr. Sanders.
[2019-05-06 21:31] LABS: BASO % 0.6 % (0-2.0); EOS % 7.1 % (0-4.5); HEMATOCRIT 39.8 % (32.4-45.2); HEMOGLOBIN 13.3 GM/dL (10.7-15.3); LYMPH % 27.7 % (8-40); MCH 30.3 pg (25.7-33.7); MCHC 33.4 g/dl (32.0-36.0); MEAN CELL VOLUME 90.8 fl (80-96); MEAN PLT VOLUME 7.9 fl (7.5-11.1); NEUT % 58.6 % (42.8-82.8); PLATELET COUNT 345 K/MM3 (134-434); RBC 4.38 M/mm3 (3.60-5.2); RDW 12.4 % (11.6-15.6); WHITE BLOOD COUNT 9.8 K/mm3 (4.0-10.0)
[2019-05-06 22:01] LABS: ALBUMIN 3.8 g/dl (3.4-5.0); BILIRUBIN,TOTAL 0.2 mg/dL (0.2-1); BLOOD UREA NITROGEN 12.6 mg/dL (7-18); CALCIUM 8.9 mg/dL (8.5-10.1); CREATININE 0.6 mg/dL (0.55-1.3); TOT PROT 7.2 g/dl (6.4-8.2)
[2019-05-06 22:05] LABS: INR 1.02 (0.83-1.09)
--- NOTE | 2019-05-06 22:10 | PDOC ---
History of Present Illness - History of Present Illness Initial Comments: Tammi Pa is a 34yo A1, seen yesterday at approximately 7wks gestation by dates with an IUP but no detectable cardiac activity who presents today with heavy vaginal bleeding. Yesterday in the ED, she reported very light bleeding; this continued until this evening. The bleeding became much heavier at around 5pm, and she started to pass large clots at about 6. The heavy bleeding has continued without decreasing since 6pm today. She denies any abdominal pain, pelvic pain, difficulty breathing, chest pain, lightheadedness, or other current symptoms. <Shira Parrish - Last Filed: 05/07/19 00:22> <Amber Lutz - Last Filed: 05/07/19 04:49> - General Chief Complaint: Vaginal Bleeding Stated Complaint: VAGINAL BLEEDING Time Seen by Provider: 05/06/19 21:10 Past History - Past Medical History Asthma: No Cancer: No Cardiac Disorders: No COPD: No Diabetes: No HTN: No Seizures: No Thyroid Disease: Yes - Reproductive History Is Patient Now?: Yes (#): 1 Para: 0 Therapeutic (s) & number: Yes Spontaneous : 0 - Psycho Social/Smoking Cessation Hx Smoking History: Never smoked Have you smoked in the past 12 months: No Hx Alcohol Use: No Drug/Substance Use Hx: No Substance Use Type: None Hx Substance Use Treatment: No <Shira Parrish - Last Filed: 05/07/19 00:22> <Amber Lutz - Last Filed: 05/07/19 04:49> - Past Medical History Allergies/Adverse Reactions: Allergies Allergy/AdvReac Type Severity Reaction Status Date / Time apple Allergy Verified 05/06/19 20:43 acetaminophen [From Tylenol] AdvReac Verified 05/06/19 20:43 Home Medications: Ambulatory Orders NK [No Known Home Medication] 05/07/19 Review of Systems - Review of Systems Comments:: General: No fevers, no chills, no weight or appetite change, no malaise HEENT: No changes in vision, no changes in hearing, no congestion, no sore throat CV: No chest pain, no palpitations, no LE edema Pulm: No SOB, no cough, no wheezing GI: No nausea or vomiting, no change in bowel habits, no melena : See HPI Musc: No back pain, no joint swelling, no recent injury Skin: No rash, no lesions, no erythema Endo: No excessive thirst, no heat/cold intolerance Heme: No unusual bruising or bleeding, no swollen glands Neuro: No syncope, no numbness/tingling, no focal weakness Vasc: No claudication Psych: No recent change in mood, no SI or HI <Shira Parrish - Last Filed: 05/07/19 00:22> *Physical Exam - Vital Signs Last Vital Signs Temp Pulse Resp BP Pulse Ox 97.6 F 105 H 18 120/81 99 05/06/19 20:41 05/06/19 20:41 05/06/19 20:41 05/06/19 20:41 05/06/19 20:41 - Physical Exam General: Comfortable, no acute distress HEENT: PERRL, EOMI, MMM, voice normal, normal neck ROM, no LAD Cards: RRR, no murmur appreciated Pulm: Comfortable on room air, clear to auscultation bilaterally Abd: Soft, nontender, nondistended : Large clots and active bright red bleeding from vaginal canal. Os could not be visualized due to bleeding. Cervix deep, difficult to palpate, os not felt well. Ext: Atraumatic. No LE edema. ROM intact. WWP Skin: Normal color, no rashes or lesions Neuro: A&Ox3, CN grossly intact, normal speech, motor/sensory grossly intact and symmetric Psych: Mood appropriate to situation <Shira Parrish - Last Filed: 05/07/19 00:22> - Vital Signs Last Vital Signs Temp Pulse Resp BP Pulse Ox 98.0 F 82 18 104/64 99 05/07/19 03:13 05/07/19 03:34 05/07/19 03:34 05/07/19 03:34 05/07/19 03:34 <Amber Lutz - Last Filed: 05/07/19 04:49> ED Treatment Course - LABORATORY CBC & Chemistry Diagram: 05/06/19 22:45 05/06/19 21:10 <Shira Parrish - Last Filed: 05/07/19 00:22> - LABORATORY CBC & Chemistry Diagram: 05/07/19 04:00 05/06/19 21:10 - ADDITIONAL ORDERS Additional order review: Laboratory Results 05/06/19 05/06/19 05/06/19 22:45 21:10 21:10 PT with INR 12.00 INR 1.02 Sodium Potassium Chloride Carbon Dioxide Anion Gap BUN Creatinine Est GFR (CKD-EPI)AfAm Est GFR (CKD-EPI)NonAf Random Glucose Calcium Total Bilirubin AST ALT Alkaline Phosphatase Total Protein Albumin Beta HCG, Quant Blood Type Cancelled B POSITIVE Antibody Screen Cancelled Negative Crossmatch See Detail See Detail 05/06/19 05/06/19 21:10 21:00 PT with INR INR Sodium 136 Potassium 4.0 Chloride 102 Carbon Dioxide 27 Anion Gap 6 L BUN 12.6 Creatinine 0.6 Est GFR (CKD-EPI)AfAm 136.87 Est GFR (CKD-EPI)NonAf 118.09 Random Glucose 99 Calcium 8.9 Total Bilirubin 0.2 AST 13 L ALT 31 Alkaline Phosphatase 83 Total Protein 7.2 Albumin 3.8 Beta HCG, Quant 5214.3 Blood Type Antibody Screen Crossmatch 05/07/19 05/06/19 05/06/19 04:00 22:45 21:00 RBC 3.47 L 3.62 4.38 MCV 91.5 91.2 90.8 MCHC 33.4 33.0 33.4 RDW 12.7 12.8 12.4 MPV 8.0 8.4 7.9 Neutrophils % 77.8 75.8 D 58.6 Lymphocytes % 15.3 15.4 D 27.7 D Monocytes % 5.0 5.7 6.0 Eosinophils % 1.4 2.5 7.1 H Basophils % 0.5 0.6 0.6 - RADIOLOGY Radiology Studies Ordered: Category Date Time Status TRANSVAGINAL US PREG [US] Stat Ultrasound 05/07/19 23:20 Taken - Medications Given in the ED: ED Medications Discontinued Medications Generic Name Dose Route Start Last Admin Trade Name Freq PRN Reason Stop Dose Admin Sodium Chloride 2,000 ml 05/06/19 22:57 05/06/19 22:59 Normal Saline - IV 05/06/19 22:58 2,000 ml ONCE ONE Administration <Amber Lutz - Last Filed: 05/07/19 04:49> Medical Decision Making - Medical Decision Making 05/06/19 21:34 Tammi Pa is a 34yo A1, seen yesterday at approximately 7wks gestation by dates with an IUP w/o detectable cardiac activity who presents today with heavy painless vaginal bleeding. - CBC, CMP, bHCG, T&S, IVF - Call to Dr Sanders; heavy bleeding is common during miscarriage and typically lasts up to about 4 hours - Continue to monitor 05/06/19 22:23 - bHCG decreased to 5214 today from 6077 yesterday. Appropriate decrease - Bleeding already markedly diminished - H/H are WNL 05/06/19 22:54 - Patient became bradycardic to the 40's, lightheaded, diaphoretic, and pale. Placed in trendelenburg; HR incrased to 80, SBP in the 130's. - Symptoms now resolved - Continue to monitor 05/06/19 23:43 - Rechecked pt, now with active bleeding again. Softball-sized clot evacuated from vaginal canal w/ red blood clot. Pt sitting in large pool of clotted blood approximately 1 hour after her bedding was last changed. - Repeat hbg 10 from 13 on initial labs. Pt had received only 1L NS at that time , unlikely dilution - Will consent for transfusion given drop in Hgb in 3 hours and continued bleeding - Multiple calls to Dr Sanders. 05/07/19 00:22 - Seen by Dr Sanders, pt examined. Feels amount of bleeding is within expected range for a miscarriage, bleeding is now nearly stopped. Comfortable with pt going home to follow up with her regular OB - Will continue to monitor vitals and bleeding in the ED for now - Pt to be signed out to Dr Ag for the remainder of her ED care Seen with Dr Nelda Parrish PGY2 <Shira Parrish - Last Filed: 05/07/19 00:22> Discharge - Discharge Information Problems reviewed: Yes <Shira Parrish - Last Filed: 05/07/19 00:22> - Admission Yes <Amber Lutz - Last Filed: 05/07/19 04:49> - Discharge Information Clinical Impression/Diagnosis: Vagina bleeding Condition: Guarded - Follow up/Referral Referrals: Tammi Phillips MD [Primary Care Provider] - Valeria Sanders MD [Staff Physician] - - Patient Discharge Instructions Additional Instructions: Follow up as scheduled on 05/[address] [place] [id number] - Post Discharge Activity
[2019-05-06] MEDS ORDERED: SODIUM CHLORIDE 0.9% 500 ML INFUS.BAG IV ONE (22:57)
[2019-05-06 23:08] LABS: BASO % 0.6 % (0-2.0); EOS % 2.5 % (0-4.5); HEMOGLOBIN 10.9 GM/dL (10.7-15.3); LYMPH % 15.4 % (8-40); MCH 30.1 pg (25.7-33.7); MEAN CELL VOLUME 91.2 fl (80-96); MEAN PLT VOLUME 8.4 fl (7.5-11.1); MONO % 5.7 % (3.8-10.2); NEUT % 75.8 % (42.8-82.8); PLATELET COUNT 373 K/MM3 (134-434); RBC 3.62 M/mm3 (3.60-5.2); RDW 12.8 % (11.6-15.6); WHITE BLOOD COUNT 19.9 K/mm3 (4.0-10.0)
--- NOTE | 2019-05-07 00:27 | HP ---
Past Medical History - Admission Chief Complaint: Vaginal bleeding History of Present Illness: 34yo @ 6.0wks by sono here with vaginal bleeding Unplanned . Seen in ER yesterday with spotting, sono done showing 6.0wk IUP, no cardiac activity. Today noted bleeding picked up around 5pm and became heavier starting at 7pm, with passage of small clots. Mild cramping. No fevers/chills. Has appt scheduled 05/09 with Marianna Beard CNM at [address] [place] [address], initially made for BTL consult but then found out she was recently. 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 Weeks Gestation by Dates: 6.0 Heme/Onc: No: Anemia, B12 Deficiency, Bleeding Disorder, Cancer, Current Chemotherapy, Current Radiation Therapy, Hemochromatosis, Hypercoaguable State, Myeloproliferative Synd, Sickle Cell Disease, Sickle Cell Trait, Thrombocytopenia, Other - Past Surgical History Past Surgical History: Yes: None Hx Myomectomy: No Hx Transabdominal Cerclage: No - Smoking History Smoking history: Never smoked Have you smoked in the past 12 months: No - Alcohol/Substance Use Hx Alcohol Use: No History of Substance Use: reports: None - Social History Usual Living Arrangement: Yes: With Spouse Do you think of yourself as: Straight/Heterosexual ADL: Independent History of Recent Travel: No (traveled to [facility] 07/2017) Home Medications - Allergies Allergies/Adverse Reactions: Allergies Allergy/AdvReac Type Severity Reaction Status Date / Time apple Allergy Verified 05/06/19 20:43 acetaminophen [From Tylenol] AdvReac Verified 05/06/19 20:43 - Home Medications Home Medications: Ambulatory Orders Pnv No.95/Ferrous Fum/Folic AC [ Vitamin Tablet] 1 tab PO DAILY Vitamins (Sjr) - 1 tab PO DAILY tablet 04/14/18 Misoprostol [Cytotec] 200 mcg PV ONCE #4 tablet 05/07/19 Physical Exam - Maternity Vital Signs: Vital Signs Temperature 97.6 F 05/06/19 20:41 Pulse Rate 80 05/06/19 23:44 Respiratory Rate 16 05/06/19 23:44 Blood Pressure 89/56 L 05/06/19 23:44 O2 Sat by Pulse Oximetry (%) 98 05/06/19 23:44 Constitutional: Yes: Well Nourished, No Distress, Calm - Vaginal Exam/OB Vaginal Bleediing: Yes, Light, Fresh Blood (Speculum exam: pink vagina, cervix visually closed, no active/brisk bleeding, small amount of fresh blood in vaginal vault. Cervix thick, 1cm dilated) Speculum Exam: Yes - Labs Lab Results: CBC, BMP 05/06/19 22:45 05/06/19 21:10 Imaging - Results Ultrasound: Report Reviewed Problem List - Problems (1) SAB (spontaneous ) Code(s): O03.9 - COMPLETE OR UNSP SPONTANEOUS WITHOUT COMPLICATION Assessment/Plan 34yo @ 6.0wks now s/p SAB here in ER Vitals, labs, imaging all reviewed Patient examined; on speculum exam bleeding is decreased, blood loss appears appropriate for 6wk SAB. Uterus firm, small. Vitals stable, patient had one vasovagal episode in ER, has responded well with fluid hydration Labs reviewed, H/H 10.9/33, which is appropriate given blood loss. Not a significant change in H/H, given blood loss and 2L IVF. Transfusion not indicated. Stable to discharge home; pt reliable. would benefit from cytotec course ( 800mcg PV x 1) to encourage continued uterine cramping and decrease future bleeding. Motrin prn pain although she denies any discomfort Has close follow up on 05/09 in office Analilia Sanders MD
[2019-05-07 04:12] LABS: BASO % 0.5 % (0-2.0); EOS % 1.4 % (0-4.5); HEMATOCRIT 31.7 % (32.4-45.2); HEMOGLOBIN 10.6 GM/dL (10.7-15.3); LYMPH % 15.3 % (8-40); MCH 30.6 pg (25.7-33.7); MCHC 33.4 g/dl (32.0-36.0); MEAN CELL VOLUME 91.5 fl (80-96); NEUT % 77.8 % (42.8-82.8); PLATELET COUNT 263 K/MM3 (134-434); RBC 3.47 M/mm3 (3.60-5.2); RDW 12.7 % (11.6-15.6); WHITE BLOOD COUNT 10.3 K/mm3 (4.0-10.0)
--- NOTE | 2019-05-07 05:48 | PDOC ---
*Physical Exam - Vital Signs Last Vital Signs Temp Pulse Resp BP Pulse Ox 98.0 F 82 18 104/64 99 05/07/19 03:13 05/07/19 03:34 05/07/19 03:34 05/07/19 03:34 05/07/19 03:34 - Physical Exam 34 yo F A1 at approximately 7 weeks GA with a confirmed IUP but no detectable cardiac activity presented to the emergency department with vaginal bleeding. I received sign out from Dr. Parrish. ED Treatment Course - LABORATORY CBC & Chemistry Diagram: 05/07/19 04:00 05/06/19 21:10 - ADDITIONAL ORDERS Additional order review: Laboratory Results 05/06/19 05/06/19 05/06/19 22:45 21:10 21:10 PT with INR 12.00 INR 1.02 Sodium Potassium Chloride Carbon Dioxide Anion Gap BUN Creatinine Est GFR (CKD-EPI)AfAm Est GFR (CKD-EPI)NonAf Random Glucose Calcium Total Bilirubin AST ALT Alkaline Phosphatase Total Protein Albumin Beta HCG, Quant Blood Type Cancelled B POSITIVE Antibody Screen Cancelled Negative Crossmatch See Detail See Detail 05/06/19 05/06/19 21:10 21:00 PT with INR INR Sodium 136 Potassium 4.0 Chloride 102 Carbon Dioxide 27 Anion Gap 6 L BUN 12.6 Creatinine 0.6 Est GFR (CKD-EPI)AfAm 136.87 Est GFR (CKD-EPI)NonAf 118.09 Random Glucose 99 Calcium 8.9 Total Bilirubin 0.2 AST 13 L ALT 31 Alkaline Phosphatase 83 Total Protein 7.2 Albumin 3.8 Beta HCG, Quant 5214.3 Blood Type Antibody Screen Crossmatch 05/07/19 05/06/19 05/06/19 04:00 22:45 21:00 RBC 3.47 L 3.62 4.38 MCV 91.5 91.2 90.8 MCHC 33.4 33.0 33.4 RDW 12.7 12.8 12.4 MPV 8.0 8.4 7.9 Neutrophils % 77.8 75.8 D 58.6 Lymphocytes % 15.3 15.4 D 27.7 D Monocytes % 5.0 5.7 6.0 Eosinophils % 1.4 2.5 7.1 H Basophils % 0.5 0.6 0.6 - Medications Given in the ED: ED Medications Discontinued Medications Generic Name Dose Route Start Last Admin Trade Name Freq PRN Reason Stop Dose Admin Sodium Chloride 2,000 ml 05/06/19 22:57 05/06/19 22:59 Normal Saline - IV 05/06/19 22:58 2,000 ml ONCE ONE Administration Medical Decision Making - Medical Decision Making Received sign out from Dr. Parrish. Patient awaiting admission to [facility]. Patient was accepted to [facility] for management of vaginal bleeding likely secondary from retained products. Dispo: Admit Discharge - Discharge Information Problems reviewed: Yes Clinical Impression/Diagnosis: Vagina bleeding - Follow up/Referral - Patient Discharge Instructions - Post Discharge Activity
[2019-05-07] MEDS ORDERED: MORPHINE SULFATE 2 MG/ML VIAL IM ONE (07:00)
[2019-05-07] MEDS ORDERED: METHYLERGONOVINE MALEATE 0.2 MG/1 ML AMP IM ONE (07:30)
[2019-05-07] MEDS: SODIUM CHLORIDE 1,000 ML IV SCH ×2 (08:00→12:30)
--- NOTE | 2019-05-07 09:59 | PN ---
Progress Note (short form) - Note Progress Note: Pt admitted from ER after 2nd syncopal episode. Received 2U PRBC per ER attending, although not anemic. Received Methergine IM x 1 this morning. NPO. This morning, patient reports decreased bleeding, feels well. No cramping VSS NAD Abd: soft, NT SVE: Deferred, only spotting seen on the pad Ext: no edema Hct: 31.7 at 4AM A/P: 34yo s/p 6wk SAB, improved bleeding H/H Stable, no further transfusion indicated Given option of medical management with cytotec vs D&C for potential retained products. Pt opts for D&C, risks, benefits and alternatives reviewed Proceed to OR; appropriate staff notified Analilia Sanders MD Problem List - Problems (1) SAB (spontaneous ) Code(s): O03.9 - COMPLETE OR UNSP SPONTANEOUS WITHOUT COMPLICATION
[2019-05-07] MEDS ORDERED: PROPOFOL 20 ML ONE ×4 (11:28→11:32)
[2019-05-07] MEDS ORDERED: MIDAZOLAM HCL 2 MG/2 ML SINGLE DOSE VIAL ONE (11:29)
[2019-05-07] MEDS ORDERED: MORPHINE SULFATE 2 MG/ML VIAL IVPUSH PRN (12:02)
[2019-05-07] MEDS ORDERED: ONDANSETRON 4 MG/2 ML VIAL IVPUSH PRN ×2 (12:02→12:48)
--- NOTE | 2019-05-07 12:03 | OP ---
Operative Note - Note: Operative Date: 05/07/19 Operation: Suction Dilation & Curettage Findings: Normal Cervix, dilated 2-3cm, scant POC in THERESA Post-Operative Diagnosis: Same as Pre-op Surgeon: Valeria Sanders Anesthesia: General Estimated Blood Loss (mls): 25 Operative Report Dictated: Yes
[2019-05-07] MEDS ORDERED: LACTATED RINGERS SOLUTION 1,000 ML IV SCH (12:15)
--- NOTE | 2019-05-07 12:26 | OP ---
DATE OF OPERATION: 05/07/2019 PREOPERATIVE DIAGNOSIS: Incomplete . POSTOPERATIVE DIAGNOSIS: Incomplete . PROCEDURE: Suction dilation and curettage. ANESTHESIA: General. INTRAVENOUS FLUIDS: Per anesthesia record. SURGEON: Luciana Rios MD. ESTIMATED BLOOD LOSS: 25. FINDINGS: Normal cervix dilated 2-3 cm. Uterus 6 cm on sound. Scant products of conception in lower uterine segment. COMPLICATIONS: None. CONDITION: Stable to recovery room. DESCRIPTION OF PROCEDURE: After the appropriate consents were signed, the patient was taken to the operating room where anesthesia was administered. She was placed in lithotomy position. Surgical field was prepped and draped in a normal sterile fashion. A time-out was performed confirming correct patient and procedure. Sterile speculum was inserted into the vagina with good visualization of the cervix. The anterior lip of the cervix was grasped with a single-tooth tenaculum. The cervix was then sounded and noted to be 6 cm. A Lew dilator 26 size was inserted without any difficulty or resistance, 8 suction tubing was inserted into the cervix. Appropriate pressure was obtained in 2 passes. Products of conception were removed after the 2nd pass. Suction curettage was introduced for a 3rd time with no productive cough noted. The suction tube was then removed. Gentle curettage was done with a gritty texture noted to all 4 quadrants. Small-tooth tenaculum was removed from the anterior lip of the cervix. Bite sites remained hemostatic with pressure. The tenaculum was then removed. All sponge, lap counts were correct x3. The patient was taken from the operating room to the recovery area in stable condition. LUCIANA RIOS MD [id number]
[2019-05-07 18:13] VITALS: BP 100/66; PULSE 93; TEMP 98.3
--- NOTE | 2019-05-09 01:06 | EKG ---
Test Reason : Blood Pressure : / mmHG Vent. Rate : 082 BPM Atrial Rate : 082 BPM P-R Int : 152 ms QRS Dur : 082 ms QT Int : 400 ms P-R-T Axes : 058 073 043 degrees QTc Int : 467 ms NORMAL SINUS RHYTHM NORMAL ECG NO PREVIOUS ECGS AVAILABLE Confirmed by TOD MANDUJANO MD ([id number]) on 05/09/2019 1:06:30 AM Referred By: Confirmed By:TOD MANDUJANO MD
--- NOTE | 2019-05-10 15:33 | PATH ---
Surgical Pathology Report Patient Name: TAMMI GRANT [facility]. Rec. 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 Final Diagnosis A. UTERINE CONTENTS/ PRODUCTS OF CONCEPTION, DILATION AND CURETTAGE: IMMATURE CHORIONIC VILLI, DECIDUA, AND GESTATIONAL ENDOMETRIUM CONSISTENT WITH PRODUCTS OF CONCEPTION. B. "PRODUCTS OF CONCEPTION", DILATION AND CURETTAGE: AGGREGATE OF BLOOD (FIBRIN) CLOT. NO VILLOUS TISSUE IDENTIFIED. SEE PART A. Electronically Signed Tammi Rucker M.D. Gross Description A. Received in formalin labeled "uterine contents/products of conception," is an 8.0 x 5.5 x 0.7 cm aggregate of gonzalez brown soft tissue fragments. No definitive villous tissue or somatic tissue is identified. A sales representative livestock portion is submitted in 3 cassettes. B. Received fresh, labeled with the patient's name and indicated on the requisition to be products of conception, is a 20.0 x 12.5 x 3.0 cm aggregate of red-brown blood clot. No definitive villous tissue or somatic tissue is identified. A sales representative livestock portion is submitted in 3 cassettes. DL/05/09/2019 saudi05/09/2019
== END 2019-05-07 18:00 | disposition home or self-care (01) | DRG 544 ==
LOC: JER 20:39 → JERBED 05-07 04:50 → J3W 05-07 06:31
PROVIDERS: ADMIT Obstetrics & Gynecology; ATTEND Obstetrics & Gynecology
PROC: 30233N1 Transfusion of Nonautologous Red Blood Cells into Peripheral Vein, Percutaneous Approach (ICD-10-PCS; 2019-05-06)
PROC: 10D17ZZ Extraction of Products of Conception, Retained, Via Natural or Artificial Opening (ICD-10-PCS; principal; 2019-05-07 11:33)
DX: O03.4 Incomplete spontaneous abortion without complication (principal); N93.9 Abnormal uterine and vaginal bleeding, unspecified; R55 Syncope and collapse
CPT/HCPCS: 36415; 36430; 36511; 76817-TC; 80053; 84702; 85025; 85610; 86850; 86900; 86901; 86922; 88305-TC; 93005; 93010; 94760; 99285-25; J7030; P9038; P9058

== ENCOUNTER 2019-07-15 04:46 | Day surgery (SDC) | payer OTHER ==
[2019-07-07 13:03] VITALS: BMI 31.2
[2019-07-15] MEDS ORDERED: BUPIVACAINE HCL/PF 0.25% (2.5MG/ML) 10 ML VIAL ONE (07:28)
[2019-07-15] MEDS ORDERED: PROPOFOL 20 ML ONE ×2 (07:31→09:04)
[2019-07-15] MEDS ORDERED: ROCURONIUM BROMIDE 50 MG/5 ML SYRINGE ONE (07:31)
[2019-07-15] MEDS ORDERED: SUCCINYLCHOLINE CHLORIDE 200 MG/10 ML SYRINGE ONE (07:31)
[2019-07-15] MEDS ORDERED: MIDAZOLAM HCL 2 MG/2 ML SINGLE DOSE VIAL ONE (07:31)
[2019-07-15] MEDS ORDERED: ceFAZolin SODIUM 1 GM VIAL ONE (07:32)
[2019-07-15] MEDS ORDERED: LIDOCAINE HCL/PF 2% SDV 5ML VIAL ONE ×2 (07:32→07:57)
[2019-07-15] MEDS ORDERED: SODIUM CHLORIDE 0.9% P/F 10 ML VIAL IJ ONE (07:32)
[2019-07-15] MEDS ORDERED: DEXAMETHASONE SOD PHOSPHATE 4 MG/1 ML VIAL ONE (07:32)
[2019-07-15] MEDS ORDERED: KETOROLAC TROMETHAMINE 30 MG/1 ML VIAL ONE (07:32)
--- NOTE | 2019-07-15 08:31 | HP ---
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: Alzheimer's, CVA, Dementia, Migraine, Multiple Sclerosis, Peripheral Neuropathy, Parkinson's, Seizure, Syncope, TIA, Vertigo, Other Cardiovascular: No: AFIB, Aneurysm, Aortic Insufficiency, Aortic Stenosis, CAD, CHF, Deep Vein Thrombosis, HTN, Hyperlipdemia, VT, Mitral Insufficiency, Mitral Stenosis, Murmur, Pulmonary Hypertension, Other Pulmonary: No: Asthma, Bronchitis, Cancer, COPD, O2 Dependent, Pneumonia, Previously Intubated, Pulmonary Embolus, Pulmonary Fibrosis, Sleep Apnea, Other ...LMP: 09/19/16 ...: No Heme/Onc: No: Anemia, B12 Deficiency, Bleeding Disorder, Cancer, Current Chemotherapy, Current Radiation Therapy, Hemochromatosis, Hypercoaguable State, Myeloproliferative Synd, Sickle Cell Disease, Sickle Cell Trait, Thrombocytopenia, Other - Past Surgical History Past Surgical History: Yes: None - Smoking History Smoking history: Never smoked Have you smoked in the past 12 months: No - Alcohol/Substance Use Hx Alcohol Use: No History of Substance Use: reports: None - Social History ADL: Independent History of Recent Travel: No (traveled to [facility] 07/2017) Home Medications - Allergies Allergies/Adverse Reactions: Allergies Allergy/AdvReac Type Severity Reaction Status Date / Time apple Allergy Verified 07/15/19 06:52 acetaminophen [From Tylenol] AdvReac Verified 07/15/19 06:52 FRUITS Allergy Uncoded 07/15/19 06:52 - Home Medications Home Medications: Ambulatory Orders Ibuprofen 600 mg PO Q6H PRN #30 tablet 05/07/19 No122/Iron/Folic Acid [ Multi Tablet] 1 each PO DAILY 07/07/19 Ibuprofen 600 mg PO Q6H PRN #30 tablet 07/15/19 Physical Examination Vital Signs: Vital Signs Temperature 98.0 F 07/15/19 06:50 Pulse Rate 86 07/15/19 06:50 Respiratory Rate 18 07/15/19 06:50 Blood Pressure 130/79 07/15/19 06:50 O2 Sat by Pulse Oximetry (%) 98 02/14/20 06:50 Constitutional: Yes: Well Nourished, No Distress, Calm Eyes: Yes: WNL, Conjunctiva Clear, EOM Intact HENT: Yes: WNL, Atraumatic, Normocephalic Neck: Yes: WNL, Supple, Trachea Midline Cardiovascular: Yes: WNL, Regular Rate and Rhythm Respiratory: Yes: WNL, Regular, CTA Bilaterally Gastrointestinal: Yes: WNL, Normal Bowel Sounds Musculoskeletal: Yes: WNL Extremities: Yes: WNL Edema: No Integumentary: Yes: WNL Neurological: Yes: WNL, Alert, Oriented ...Motor Strength: WNL Psychiatric: Yes: WNL Assessment/Plan 34yo here for sterilization NPO, IVFs SCDs/TEDS Gee Risk and alternatives discussed including LARCs. Risk of bleeding, infection, injury to bladder/ovaries/uterus/bowel reviewed. Permanence of BTL reviewed. All questions answered, consents signed Proceed to OR for LSC B/L Salpingectomy Analilia Sanders MD
[2019-07-15] MEDS ORDERED: GLYCOPYRROLATE 0.2 MG/1 ML VIAL ONE (08:52)
[2019-07-15] MEDS ORDERED: NEOSTIGMINE METHYLSULFATE 0.5 MG/ML - 10 ML MDV ONE (08:53)
[2019-07-15] MEDS ORDERED: BUPIVACAINE HCL/PF 2.5 MG/ML - 30 ML VIAL IJ ONE ×2 (08:56)
[2019-07-15] MEDS ORDERED: oxyCODONE HCL 5 MG TABLET PO PRN (09:02)
[2019-07-15] MEDS ORDERED: ONDANSETRON 4 MG/2 ML VIAL IVPUSH PRN (09:02)
[2019-07-15] MEDS ORDERED: LACTATED RINGERS SOLUTION 1,000 ML IV SCH (09:15)
--- NOTE | 2019-07-15 09:54 | OP ---
Operative Note - Note: Operative Date: 07/15/19 Pre-Operative Diagnosis: Desires Permanent Sterilization Operation: Laparoscopic Bilateral Ligation Findings: Normal uterus, normal tubes and normal ovaries bilaterally Post-Operative Diagnosis: Same as Pre-op Surgeon: Valeria Sanders Professor Of Sociology: Alejandro Del Angel Anesthesia: General Estimated Blood Loss (mls): 25 Drains, Volume Out (mls): 100 Operative Report Dictated: Yes
[2019-07-15 10:34] VITALS: BP 110/70; PULSE 68; TEMP 97.5
--- NOTE | 2019-07-15 10:58 | OP ---
DATE OF OPERATION: 07/15/2019 PREOPERATIVE DIAGNOSIS: Desires permanent sterilization. POSTOPERATIVE DIAGNOSIS: Desires permanent sterilization. PROCEDURE PERFORMED: Laparoscopic bilateral salpingectomy. ANESTHESIA: General. SURGEON: Valeria Sanders MD LANDING SUPPORT SPECIALIST: Alejandro Del Angel PA-C. INTRAVENOUS FLUIDS: Per Anesthesia record. ESTIMATED BLOOD LOSS: 25. URINE OUTPUT: 100 mL of clear urine. FINDINGS: Normal uterus, normal tubes, normal ovaries bilaterally. COMPLICATIONS: None. CONDITION: Stable to the recovery room. DESCRIPTION OF PROCEDURE: After the appropriate consents were signed, the patient was taken to the operating room. General was administered. She was placed in the dorsal lithotomy position. The surgical field was prepped and draped in the normal sterile fashion. A sterile Gee catheter was inserted. A time-out was performed, confirming correct patient and procedure. Marcaine 0.25% was injected into the umbilicus prior to incision with a scalpel to accommodate the 5-mm laparoscope, which was inserted under direct visualization. Correct positioning was confirmed. The abdomen was insufflated with gas. The patient was placed in Trendelenburg position. A left lower quadrant port was inserted under direct visualization. The area was injected with Marcaine prior to insertion of the scope. Attention was then paid to the right lower quadrant, where another 5-mm scope was inserted in the same manner. The bowel was swept from the patient's pelvis. The uterus was inspected and noted to be normal. Both fallopian tubes and ovaries were also noted to be normal. Using the LigaSure device, the patient's left fallopian tube was ligated along the mesosalpinx until its insertion point at the uterus, where it was transected. The bite sites were noted to be hemostatic. The patient's fallopian tube was removed through the right lower quadrant port and sent separately for pathology. Attention was then paid to the patient's right fallopian tube, which was taken down with the LigaSure device in a similar fashion. The stump sites were also noted to be hemostatic. The patient's fallopian tube was then removed through the left lower quadrant port and sent separately for pathology. The abdomen was desufflated of some gas. The stump sites were noted to still be hemostatic. The left lower quadrant and right lower quadrant ports were removed under direct visualization. The abdomen was desufflated of gas. The umbilical port was then removed. All incision sites were closed with 4-0 Biosyn. Bandages were applied. The Gee catheter was removed in the operating room. The patient was taken from the operating room to the recovery area in stable condition. She did not receive any antibiotics during the procedure. MD MARCO VERMA/[id number] MTDD
--- NOTE | 2019-07-15 11:26 | SURG ---
Surgery Gold Leaf Roller Note Gold Leaf Roller: Alejandro Del Angel PA-C Date of Service: 07/15/19 Diagnosis: Desires Permanent Sterilization Procedure: Laparoscopic Bilateral Ligation I was present for the entirety of the operative procedure. For further detail, please refer to operative report. Visit type - Case Type Case Type: Scheduled - Emergency Emergency Visit: No - New patient This patient is new to me today: Yes Date on this admission: 07/15/19 - Critical Care Critical Care patient: No
--- NOTE | 2019-07-18 18:54 | PATH ---
Surgical Pathology Report Patient Name: TAMMI GRANT [facility]. Rec. #: [id number] /Age/Gender: 1985 (Age: 34) / F Account: [id number] Location: [facility] SURGICAL Taken: 07/15/2019 Received: 07/15/2019 Reported: 07/18/2019 Physicians: Valeria Sanders Specimen(s) Received A: LEFT FALLOPIAN TUBE B: RIGHT FALLOPIAN TUBE Clinical History Desired permanent sterilization Final Diagnosis A. FALLOPIAN TUBE, LEFT, SALPINGECTOMY: FALLOPIAN TUBE WITH ENDOSALPINGOSIS (INCLUDING FIMBRIATED END AND FULL LUMINAL PORTION). B. FALLOPIAN TUBE, RIGHT, SALPINGECTOMY: UNREMARKABLE FALLOPIAN TUBE (INCLUDING FIMBRIATED END AND FULL LUMINAL PORTION). Electronically Signed Tammi Rucker M.D. Gross Description A. Received in formalin labeled "left fallopian tube," is a 6.5 cm in length fimbriated fallopian tube. The outer surface is gonzalez-pink and smooth. Sectioning reveals an unremarkable lumen. Scientologist sections are submitted in 2 cassettes as follows: 1-fimbria; 2-cross sections of fallopian tube. B. Received in formalin labeled "right fallopian tube," is a 9.5 cm in length fimbriated fallopian tube. The outer surface is gonzalez-pink and smooth. Sectioning reveals an unremarkable lumen. Scientologist sections are submitted in 2 cassettes as follows: 1-fimbria; 2-cross sections of fallopian tube. /07/15/2019 saudi/07/15/2019
== END 2019-07-15 12:35 | disposition home or self-care (01) ==
LOC: JASU-SURG 04:46
PROVIDERS: ATTEND Obstetrics & Gynecology
PROC: 0U574ZZ Destruction of Bilateral Fallopian Tubes, Percutaneous Endoscopic Approach (ICD-10-PCS; principal; 2019-07-15 08:00)
DX: Z30.2 Encounter for sterilization (principal)
CPT/HCPCS: 36415; 84703; 86850; 86900; 86901; 88302-TC; 94760

== ENCOUNTER → 2022-11-19 | Day surgery (SDC) | payer OTHER | END | disposition home or self-care (01) | LOC: JRADUS-SUR 08:08 | PROVIDERS: ATTEND Family Medicine | PROC: 0H9U3ZX Drainage of Left Breast, Percutaneous Approach, Diagnostic (ICD-10-PCS; principal; 2022-11-19) | DX: C50.912 Malignant neoplasm of unspecified site of left female breast (principal) | CPT/HCPCS: 19083; 77065-TC; 87899; 88305-TC; 88341-TC; 88342-TC; A4648 ==